=== PATIENT | female | born 1960 | race African-American/Black ===

== ENCOUNTER 2016-09-07 04:43 | Emergency (ER) | payer OTHER | END 2016-09-07 05:15 | disposition home or self-care (01) | LOC: ER 04:43 | DX: J02.9 Acute pharyngitis, unspecified (principal); R53.1 Weakness; R51 Headache; H92.03 Otalgia, bilateral; Z86.73 Personal history of transient ischemic attack (TIA), and cerebral infarction without residual deficits; Z79.82 Long term (current) use of aspirin ==